=== PATIENT | female | born 1940 | race Caucasian/White ===

== ENCOUNTER → 2018-12-10 12:41 | Emergency (ER) | payer MEDICARE ==
[~2018-12-10 12:41] MED LIST: Amoxicillin/Clavulanate TAB* 875 MG PO ONE
[2018-12-10 14:20] LABS: ABS Basophils 0.1 10^3/ul (0-0.2); ABS Lymphocytes 3.2 10^3/ul (1.0-4.8); ABS Monocytes 0.6 10^3/ul (0-0.8); ABS Neutrophils 6.1 10^3/ul (1.5-7.7); Eosinophil % 0.5 %; Hematocrit 42 % (35-47); Hemoglobin 14.4 g/dL (12.0-16.0); Lymphocyte % 31.9 %; Mean Corpuscular HGB Conc 34 g/dL (31-36); Mean Corpuscular Hemoglobin 30 pg (27-31); Mean Corpuscular Volume 89 fL (80-97); Mean Platelet Volume 7.5 fL (7.4-10.4); Nucleated Red Blood Cells % 0.1; Platelet Count 179 10^3/uL (150-450); Red Blood Count 4.75 10^6 /uL (3.70-4.87); Red Cell Distribution Width 14 % (10-15)
--- NOTE | 2018-12-10 14:27 | ED ---
GI/ HPI - HPI Summary HPI Summary: 78-year-old female presents with flank pain and urgency for the past couple days. States that 3 weeks ago she was diagnosed with UTI and was placed on Macrobid. She states that her symptoms got better than they've returned. She denies any fevers. No nausea or vomiting but some nausea. was seen by primary and sent in for an ultrasound. Denies any history of kidney stones. She has only had a UTI once before this. No diarrhea constipation. No abdominal pain. admits to suprapubic pain when urinates. - History of Current Complaint Chief Complaint: EDUrogenitalProblems Time Seen by Provider: 12/10/18 13:14 Stated Complaint: PAINFUL/FREQUENT URINATION PER PT Pain Intensity: 0 - Allergy/Home Medications Allergies/Adverse Reactions: Allergies Allergy/AdvReac Type Severity Reaction Status Date / Time NSAIDS (Non-Steroidal Allergy See Comment Verified 12/10/18 13:22 Anti-Inflamma hydrocodone AdvReac Rash Verified 12/10/18 13:22 Home Medications: Home Medications Fluticasone NASAL SPRAY 50MCG* 50 mcg BOTH NARES DAILY PRN 12/10/18 [History Confirmed 12/10/18] PMH/Surg Hx/FS Hx/Imm Hx Endocrine/Hematology History: Denies: Hx Diabetes Cardiovascular History: Denies: Hx Congestive Heart Failure, Hx Hypertension Respiratory History: Reports: Other Respiratory Problems/Disorders - 1986 PNEUMONIA AFTER BRAIN SURGERY, SCAR TISSUE RIGHT LOWER LOBE GI History: Reports: Hx Irritable Bowel - caused by stress History: Denies: Hx Renal Disease Sensory History: Reports: Hx Cataracts - BILATERAL, Hx Contacts or Glasses - GLASSES Denies: Hx Hearing Aid Opthamlomology History: Reports: Hx Cataracts - BILATERAL, Hx Contacts or Glasses - GLASSES Neurological History: Reports: Other Neuro Impairments/Disorders - HX OF BRAIN HEMORRAGE 1986 WITH SOME LEFT SIDE WEAKNESS - Surgical History Surgery Procedure, Year, and Place: 1980 HYSTERECTOMY, [facility]. 1986 SURGERY FOR A BRAIN BLEED, [facility]. 2013 BILATERAL CATARACT EXTRACTION WITH [place]OL L[place] [facility] [place] Anesthesia Reactions: No Infectious Disease History: No Infectious Disease History: Denies: Traveled Outside the [place] in Last 30 Days - Social History Alcohol Use: Rare Alcohol Amount: 1-2 DRINK/YEAR Substance Use Type: Reports: None Smoking Status (MU): Light Every Day Tobacco Smoker Type: Cigarettes Amount Used/How Often: 5-10 CIGARETTES PER DAY Length of Time of Smoking/Using Tobacco: 20+ YEARS Have You Smoked in the Last Year: Yes Review of Systems Negative: Fever Negative: Chest Pain Negative: Shortness Of Breath Positive: flank pain, urgency All Other Systems Reviewed And Are Negative: Yes Physical Exam Triage Information Reviewed: Yes Vital Signs On Initial Exam: Initial Vitals Temp Pulse Resp BP Pulse Ox 99.7 F 94 16 128/86 95 12/10/18 12:45 12/10/18 12:45 12/10/18 12:45 12/10/18 12:45 12/10/18 12:45 Vital Signs Reviewed: Yes Appearance: Positive: Well-Appearing Skin: Positive: Warm, Dry Head/Face: Positive: Normal Head/Face Inspection Eyes: Positive: Normal, Conjunctiva Clear ENT: Positive: Pharynx normal Respiratory/Lung Sounds: Positive: Clear to Auscultation, Breath Sounds Present Cardiovascular: Positive: Normal, RRR Abdomen Description: Positive: Nontender, Soft, CVA Tenderness (R). Negative: CVA Tenderness (L) Bowel Sounds: Positive: Present Musculoskeletal: Positive: Normal Neurological: Positive: Normal Psychiatric: Positive: Normal Diagnostics - Vital Signs Vital Signs Temp Pulse Resp BP Pulse Ox 12/10/18 12:45 99.7 F 94 16 128/86 95 - Laboratory Lab Results: Lab Results 12/10/18 Range/Units 14:02 WBC 10.0 (3.5-10.8) 10^3/uL RBC 4.75 (3.70-4.87) 10^6 /uL Hgb 14.4 (12.0-16.0) g/dL Hct 42 (35-47) % MCV 89 (80-97) fL MCH 30 (27-31) pg MCHC 34 (31-36) g/dL RDW 14 (10-15) % Plt Count 179 (150-450) 10^3/uL MPV 7.5 (7.4-10.4) fL Neut % (Auto) 61.3 % Lymph % (Auto) 31.9 % [place] % (Auto) 5.5 % Eos % (Auto) 0.5 % Baso % (Auto) 0.8 % Absolute Neuts (auto) 6.1 (1.5-7.7) 10^3/ul Absolute Lymphs (auto) 3.2 (1.0-4.8) 10^3/ul Absolute Monos (auto) 0.6 (0-0.8) 10^3/ul Absolute Eos (auto) 0.0 (0-0.6) 10^3/ul Absolute Basos (auto) 0.1 (0-0.2) 10^3/ul Absolute Nucleated RBC 0.0 10^3/ul Nucleated RBC % 0.1 Result Diagrams: 12/10/18 14:02 12/10/18 14:02 Lab Statement: Any lab studies that have been ordered have been reviewed, and results considered in the medical decision making process. - Ultrasound No standard instances Ultrasound Interpretation Completed By: Radiologist Summary of Ultrasound Findings: IMPRESSION: No hydronephrosis of either kidney is noted. Re-Evaluation - Re-Evaluation First Eval Comment: patient still unable to urinate as just went, discussed ultrasound results Second Eval Re-Evaluation Time: 17:12 Comment: pharmacy called and said is allergic to PCN which patient claimed was not but will switch to bactrim for script even though gave augmentin GIGU Course/Dx - Course Course Of Treatment: 78-year-old female presents with flank pain and urgency for the past couple days. States that 3 weeks ago she was diagnosed with UTI and was placed on Macrobid. She states that her symptoms got better than they' ve returned. She denies any fevers. No nausea or vomiting but some nausea. was seen by primary and sent in for an ultrasound. Denies any history of kidney stones. She has only had a UTI once before this. No diarrhea constipation. No abdominal pain. On exam has mild tenderness of right flank. Nontender abdomen. wbc normal. Urine shows a UTI. Renal ultrasound normal. Will place patient on bactrim. Vitals here are stable. Told to follow-up with primary. Patient understands agrees plan. - Diagnoses Differential Diagnoses - Female: Pyelonephritis, Urinary Tract Infection, Ureteral Calculi Provider Diagnoses: UTI (urinary tract infection) Discharge - Sign-Out/Discharge Documenting (check all that apply): Patient Departure Patient Received Moderate/Deep Sedation with Procedure: No - Discharge Plan Condition: Good Disposition: HOME Prescriptions: Sulfamethox/Trimethoprim DS* [Bactrim DS 800/160 TAB*] 1 tab PO BID #14 tab Patient Education Materials: Urinary Tract Infection in Women (ED) Referrals: Reta Stout MD [Primary Care Provider] - Additional Instructions: Take bactrim twice a day for 7days, first dose given in ED Drink plenty of fluids Follow up with primary in 7 days Return to ED if develop any new or worsening symptoms - Billing Disposition and Condition Condition: GOOD Disposition: Home
[2018-12-10 14:28] LABS: INR 1.09 (0.82-1.09)
[2018-12-10 14:36] LABS: Albumin 4.1 g/dL (3.2-5.2); Albumin/Globulin Ratio 1.4 (1-3); BUN/Creatinine Ratio 9.7 (8-20); C Reactive Protein 81.56 mg/L (<8.01); Calcium 9.1 mg/dL (8.6-10.3); EGFR African American 42.3 (>60); EGFR Non-African American 34.9 (>60); Potassium 4.2 mmol/L (3.5-5.0); Total Bilirubin 1.1 mg/dL (0.2-1.0); Total Protein 7.1 g/dL (6.4-8.9)
[2018-12-10 16:22] LABS: Urine Appearance Cloudy; Urine Bacteria 1+ (Absent); Urine Bilirubin Negative (Negative); Urine Blood 3+ (Negative); Urine Color Yellow; Urine Glucose Negative (Negative); Urine Ketones Negative (Negative); Urine Nitrite Positive (Negative); Urine Protein 1+(30 mg/dL) (Negative); Urine Red Blood Cell 3+(>10/hpf) (Absent); Urine Squamous Epithelial Cell Present (Absent); Urine Urobilinogen Negative (Negative); Urine White Blood Cell 3+(>20/hpf) (Absent)
[2018-12-10 16:59] VITALS: BP 141/46
== END | disposition home or self-care (01) ==
LOC: ED 12:41
DX: N39.0 Urinary tract infection, site not specified (principal); F17.210 Nicotine dependence, cigarettes, uncomplicated; Z88.5 Allergy status to narcotic agent; Z88.8 Allergy status to other drugs, medicaments and biological substances
CPT/HCPCS: 36415; 76775; 80053; 81003; 81015; 83605; 85025; 85610; 85730; 86140; 87040; 87077; 87086; 87186; 99282; A9270-GY

== ENCOUNTER 2019-08-02 18:54 | Emergency (ER) | payer MEDICARE ==
--- NOTE | 2019-08-02 20:07 | ED ---
Lower Extremity - HPI Summary HPI Summary: 78-year-old female presents with left hip pain for the past 3 weeks. She states that she fell 3 weeks ago. She should been able to ambulate on the area. She states she's been having waxing and waning pain. States there is one area that now has pain. pain sometimes radiates down her leg. She states it was a mechanical fall. she does not use anything to ambulate. has not taken anything for symptoms. No loss conscious. - History of Current Complaint Chief Complaint: EDExtremityLower Stated Complaint: FALL PER PT Time Seen by Provider: 08/02/19 19:08 Pain Intensity: 2 - Allergies/Home Medications Allergies/Adverse Reactions: Allergies Allergy/AdvReac Type Severity Reaction Status Date / Time hydrocodone AdvReac Rash Verified 08/02/19 18:58 NSAIDS (Non-Steroidal AdvReac See Comment Verified 08/02/19 18:58 Anti-Inflamma Home Medications: Home Medications Multivit-Min/FA/Lycopen/Lutein [Senior Tabs] 1 tab PO QAM 02/11/14 [History Confirmed 12/10/18] B-Complex W/Biotin & Folic Aci [Super B-Complex] 1 cap PO QAM 10/19/14 [History Confirmed 12/10/18] Cholecalciferol TAB* [Vitamin D TAB*] 1,000 unit PO QAM 10/19/14 [History Confirmed 12/10/18] Fluticasone NASAL SPRAY 50MCG* 50 mcg BOTH NARES DAILY PRN 12/10/18 [History Confirmed 12/10/18] Sulfamethox/Trimethoprim DS* [Bactrim DS 800/160 TAB*] 1 tab PO BID #14 tab [Rx] PMH/Surg Hx/FS Hx/Imm Hx Endocrine/Hematology History: Denies: Hx Diabetes Cardiovascular History: Denies: Hx Congestive Heart Failure, Hx Hypertension Respiratory History: Reports: Other Respiratory Problems/Disorders - 1986 PNEUMONIA AFTER BRAIN SURGERY, SCAR TISSUE RIGHT LOWER LOBE GI History: Reports: Hx Irritable Bowel - caused by stress History: Denies: Hx Renal Disease Sensory History: Reports: Hx Cataracts - BILATERAL, Hx Contacts or Glasses - GLASSES Denies: Hx Hearing Aid Opthamlomology History: Reports: Hx Cataracts - BILATERAL, Hx Contacts or Glasses - GLASSES Neurological History: Reports: Other Neuro Impairments/Disorders - HX OF BRAIN HEMORRAGE 1986 WITH SOME LEFT SIDE WEAKNESS - Surgical History Surgery Procedure, Year, and Place: 1980 HYSTERECTOMY, [facility]. 1986 SURGERY FOR A BRAIN BLEED, [facility]. 2013 BILATERAL CATARACT EXTRACTION WITH IOL LENS IMPLANT, [facility] Hx Anesthesia Reactions: No - Immunization History Immunizations Up to Date: Yes Infectious Disease History: No Infectious Disease History: Denies: Traveled Outside the [place] in Last 30 Days - Social History Alcohol Use: Rare Alcohol Amount: 1-2 DRINK/YEAR Substance Use Type: Reports: None Smoking Status (MU): Light Every Day Tobacco Smoker Type: Cigarettes Amount Used/How Often: 5-10 CIGARETTES PER DAY Length of Time of Smoking/Using Tobacco: 20+ YEARS Have You Smoked in the Last Year: Yes Review of Systems Negative: Fever Negative: Chest Pain Negative: Shortness Of Breath Positive: Myalgia - left hip pain All Other Systems Reviewed And Are Negative: Yes Physical Exam Triage Information Reviewed: Yes Vital Signs On Initial Exam: Initial Vitals Temp Pulse Resp BP Pulse Ox 98.5 F 80 16 200/72 98 08/02/19 18:58 08/02/19 18:58 08/02/19 18:58 08/02/19 18:58 08/02/19 18:58 Vital Signs Reviewed: Yes Appearance: Positive: Well-Appearing Skin: Positive: Warm, Dry Head/Face: Positive: Normal Head/Face Inspection Eyes: Positive: Normal, Conjunctiva Clear ENT: Positive: Pharynx normal Respiratory/Lung Sounds: Positive: Clear to Auscultation, Breath Sounds Present Cardiovascular: Positive: Normal, RRR Musculoskeletal: Positive: Strength/ROM Intact - left hip, Other - tenderness over potential hematoma left hip, good pulses, sensation grossly intact Neurological: Positive: Normal Psychiatric: Positive: Normal Procedures - Sedation Patient Received Moderate/Deep Sedation with Procedure: No Diagnostics - Vital Signs Vital Signs Temp Pulse Resp BP Pulse Ox 08/02/19 18:58 98.5 F 80 16 200/72 98 - Laboratory Lab Statement: Any lab studies that have been ordered have been reviewed, and results considered in the medical decision making process. - Radiology hip Radiology Interpretation Completed By: ED Physician Summary of Radiographic Findings: no fracture - Ultrasound No standard instances Ultrasound Interpretation Completed By: Radiologist Summary of Ultrasound Findings: IMPRESSION: Unremarkable limited ultrasound of left hip region. Lower Extremity Course/Dx - Course Course Of Treatment: 78-year-old female presents with left hip pain for the past 3 weeks. She states that she fell 3 weeks ago. She should been able to ambulate on the area. She states she's been having waxing and waning pain. States there is one area that now has pain. pain sometimes radiates down her leg. She states it was a mechanical fall. she does not use anything to ambulate. has not taken anything for symptoms. No loss conscious. On exam tenderness over left hip. Potential hematoma felt. u/.s shows no hematoma. xray no fracture. discussed will treat with ice and elevation. patient understand and agrees with plan. - Diagnoses Differential Diagnosis/HQI/PQRI: Positive: Contusion, Fracture (Closed), Sprain Provider Diagnoses: Left hip pain Discharge ED - Sign-Out/Discharge Documenting (check all that apply): Patient Departure - Discharge Plan Condition: Good Disposition: HOME Patient Education Materials: Hip Pain (ED) Referrals: Reta Stout MD [Primary Care Provider] - Conner Harry MD [Medical Doctor] - Additional Instructions: UseTylenol for pain every 6 hours ice/heat area, move as much as possible Follow up with primary within 5 days a referral was given to ortho Return to ED if develop any new or worsening symptoms - Billing Disposition and Condition Condition: GOOD Disposition: Home
[2019-08-02 22:18] VITALS: BP 168/76
== END 2019-08-02 22:16 | disposition home or self-care (01) ==
LOC: ED 18:54
DX: M25.552 Pain in left hip (principal); F17.210 Nicotine dependence, cigarettes, uncomplicated; Z88.6 Allergy status to analgesic agent; Z79.899 Other long term (current) drug therapy
CPT/HCPCS: 99283